=== PATIENT | male | born 1960 | race Caucasian/White ===

== ENCOUNTER 2016-08-17 14:39 | Inpatient (IN) | payer OTHER ==
--- NOTE | ~2016-08-17 | DS ---
Discharge Summary [facility] [address] [place]. [address] NAME: PADMAJA DALE : 60 STATUS : DIS Etienne PAT#: [id number] AGE: 56 ADM/REG DATE : 08/17/16 MR#: [id number] REPORT SERV DATE: 08/22/16 DICTATED BY: GELACIO PATEL DATE: 08/22/16 REPORT STATUS : Draft TRANSCRIBED BY: MODL DATE: 08/22/16 ADMISSION DATE: 08/17/2016 DISCHARGE DATE: 08/22/2016 DISCHARGE DIAGNOSES: 1. Right diabetic foot wound infection, status post I and D. 2. Hau-lkkhzrb-aosqwbyys diabetes type 2. 3. Hypertension. 4. History of cerebrovascular accident. CONSULTS: Dr. Atkinson of Podiatry. PROCEDURES: I and D of the right foot. HOSPITAL COURSE: This is a 56-year-old gentleman with history of diabetic foot wound infection in the past who presented with a right heel diabetic foot wound. For details, please refer to my own H and P. In summary, the patient was admitted for observation and for IV antibiotic therapy. It did not appear to be deeply infected and actually appeared quite superficial, initially, however on the second day of the hospital stay, the skin on the outer heel peeled off and he started draining and thus it was clearly evident that the patient had an infection that was connecting the entry wound on the bottom of his heel to the side of his heel. Podiatry was consulted who took the patient for I and D. The patient was held over the weekend for preliminary culture results. The patient's culture shows Staph species. The patient historically was treated with Bactrim for his previous foot infections, and he tolerated it well and thus it was felt appropriate for patient to be discharged home with p.o. Bactrim to finish a total of 14 day course. The patient will need to follow with Dr. Atkinson closely as well as wound care as he has done previously. Discharge medications other than the 14 day total course of Bactrim, the patient has no other medication changes. DISPOSITION: Home. FOLLOWUP: 1. Please follow up with PCP in the next one to two weeks. 2. Please follow up with Dr. Atkinson as instructed. 3. Please follow up with Wound Care as instructed. A total of 25 minutes spent in coordinating this patient's discharge today. [facility] [place] Gelacio Patel MD Discharge Summary [address] [address] NAME: PADMAJA DALE : 60 STATUS : DIS Etienne PAT#: [id number] AGE: 56 ADM/REG DATE : 08/17/16 MR#: [id number] REPORT SERV DATE: 08/22/16 DICTATED BY: GELACIO PATEL DATE: 08/22/16 REPORT STATUS : Draft TRANSCRIBED BY: MODL DATE: 08/22/16 / [id number] CC: MD Nguyen Hawkins M.D.
--- NOTE | ~2016-08-17 | HP ---
History And Physical [place] [id number] [facility] [place]. [address] NAME: PADMAJA DALE : 60 STATUS : ADM IN [facility]#: [id number] AGE: 56 ADM/REG DATE : 08/17/16 MR#: [id number] REPORT SERV DATE: 08/17/16 DICTATED BY: GELACIO PEÑALOZA DATE: 08/17/16 REPORT STATUS : Draft TRANSCRIBED BY: MODL DATE: 08/17/16 DATE OF ADMISSION: 08/17/2016 CHIEF COMPLAINT: A right foot nonhealing wound. HISTORY OF PRESENT ILLNESS: This is a 56-year-old gentleman with history of diabetes and hypertension, presenting with a nonhealing right foot wound. The patient reports that he first noticed it on his heel 08/03/2016 which is couple weeks ago. Since then, the patient tried putting on some Neosporin and he also tried keeping weight off his right foot as much as he can. Unfortunately, the wound did not heal up, and about a week ago, it actually became red and swollen. The patient was seen by his PCP who gave him a p.o. Bactrim which effectively got rid of the redness and warmth. Unfortunately, however, the patient's right foot wound on his heel persisted and thus he decided to come to the ER for further evaluation and care. In the ER, the patient was found to be afebrile and hemodynamically stable. Initial lab evaluation was all very benign for CBC and BMP. His white blood cell count was 11.0. Lactate was negative and x-ray of the right foot was nonacute. Internal Medicine consultation was requested for admission of the patient for further evaluation and care. In reviewing pertinent past medical history, the patient reports that he had suffered from a diabetic foot wound that was slow to heal several years ago. It took him about a year of wound care to heal. The patient is extremity fixated on getting wound care as well as antibiotic therapy to heal the wound. On my exam, the patient appears to have a very superficial and trivial puncture wound that is not infected. There is no redness and there is no induration. There is no tenderness. It does have a slight drainage which appears to be actually a topical antibiotic that was put on earlier by the ER staff. REVIEW OF SYSTEMS: The patient denies any fevers or chills. Also, 14-point review of systems reviewed and negative other than mentioned above. MEDICATIONS: 1. Aspirin 325 mg p.o. q.a.m. 2. Plavix 75 mg p.o. q.a.m. 3. Zestoretic one tab p.o. q.a.m. 4. Metformin 1000 mg p.o. b.i.d. 5. Pravachol 80 mg p.o. at bedtime. 6. Bactrim one tab p.o. b.i.d. x5 days, which the therapy was completed as of yesterday. ALLERGIES: NKDA. PAST MEDICAL HISTORY: 1. Omz-dpugugt-xmyplhrck diabetes type 2. 2. Hypertension. 3. History of CVA back in 2011 with no residual deficits. History And Physical [address] [address] NAME: PADMAJA DALE : 60 STATUS : ADM IN [facility]#: [id number] AGE: 56 ADM/REG DATE : 08/17/16 MR#: [id number] REPORT SERV DATE: 08/17/16 DICTATED BY: GELACIO PEÑALOZA DATE: 08/17/16 REPORT STATUS : Draft TRANSCRIBED BY: YUE DATE: 08/17/16 PAST SURGICAL HISTORY: Some kind of kidney surgery at age 22. FAMILY HISTORY: Negative. SOCIAL HISTORY: The patient does not smoke, drink alcohol, or use any illicit drugs. The patient is at home with his . 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 The patient reports that the more he has to take a break the less income he will get. The patient is concerned about his wounds turning into a nonhealing ulcer because his income is dependent on the amount of work he can perform. PHYSICAL EXAMINATION: VITAL SIGNS: Temperature 97.3, blood pressure 116/69, pulse 78, respiratory rate is 16, and saturating 98% on room air. NEUROLOGIC: The patient is alert and oriented x3 with no focal neurologic deficits. GENERAL: The patient is awake, does not appear to be in acute distress and he is cooperative. NECK: No JVD. No lymphadenopathy. Normal thyroid. CHEST: No midline sternotomy scar and no tenderness to palpation. LUNGS: Clear to auscultation bilaterally with normal respiratory effort on room air. CARDIOVASCULAR: Regular rate and rhythm with no murmurs, rubs, or gallops and PMI is nondisplaced. ABDOMEN: Soft, nontender, with active bowel sounds and no organomegaly. EXTREMITIES: No edema. Normal distal pulses. No calf tenderness. SKIN: Clean, dry, warm, and intact. LABORATORY DATA: Sodium is 134, potassium 4.7, chloride 99, BUN 23, creatinine 1.01, glucose 136, calcium 9.1. White blood cell count is 11.0, hemoglobin 12.7, platelets 384. Lactate is 0.9. Right foot x-ray was nonacute. ASSESSMENT: This is a 56-year-old gentleman with history of diabetes, hypertension, and diabetic nonhealing foot ulcer, presenting with a diabetic foot wound on his right heel. 1. Right heel diabetic foot wound, which appears to be a superficial puncture wound without any active infection at this point in time, although the patient is quite fixated on getting wound care as well as antibiotic therapy for infection based on his previous experience. 2. Non-insulin dependent diabetes type 2. 3. Hypertension. 4. History of cerebrovascular accident. PLAN: My plan is to admit the patient for observation under med/surg telemetry. The patient will be given gentle IV fluid resuscitation. The patient was already started on IV vancomycin which I will tentatively continue, but I repeatedly explained to the patient that he did not seem to have an active ongoing infection and really all he needs is a careful History And Physical [address] [address] NAME: PADMAJA DALE : 60 STATUS : ADM IN [facility]#: [id number] AGE: 56 ADM/REG DATE : 08/17/16 MR#: [id number] REPORT SERV DATE: 08/17/16 DICTATED BY: GELACIO PEÑALOZA DATE: 08/17/16 REPORT STATUS : Draft TRANSCRIBED BY: MODL DATE: 08/17/16 wound care at home. The patient probably does not even need a professional wound care at this point in time. I will go ahead and check ESR, CRP, as well as procalcitonin level just to cover the basis of potential infection. My feeling is that the patient would be just fine and be able to be discharged to home tomorrow with instructions on wound care at home. Standard DVT prophylaxis. The patient is full code at this time. [facility] [place] Gelacio Peñaloza MD / [id number] CC: MD Dr. Adalberto Hawkins
[2016-08-17 13:23] LABS: BASOPHILS 0.1 %; BASOPHILS ABSOLUTE 0.01 10/3/uL (0.0-0.16); EOSINOPHILS 2.3 %; EOSINOPHILS ABSOLUTE 0.25 10/3/uL (0.0-0.53); HEMATOCRIT 39.4 % (40.0-51.0); HEMOGLOBIN 12.7 g/dL (13.6-17.8); IMMATURE GRANULOCYTES 0.5 %; IMMATURE GRANULOCYTES ABSOLUTE 0.06 10/3/uL (0.0-0.11); LYMPHOCYTES 23.6 %; LYMPHOCYTES ABSOLUTE 2.61 10/3/uL (0.67-4.30); MEAN CORPUS HGB CONC 32.2 g/dL (32.0-36.0); MEAN CORPUSCULAR VOLUME 77.6 fL (80-100); MEAN PLATELET VOLUME 9.6 fL (9.2-13.0); MONOCYTES 5.9 %; MONOCYTES ABSOLUTE 0.65 10/3/uL (0.21-1.20); NEUTROPHILS 67.6 %; NEUTROPHILS ABSOLUTE 7.46 10/3/uL (2.02-8.40); PLATELET COUNT 384 10/3/uL (150-400); RBC DISTRIBUTION WIDTH 14.2 % (12.0-16.0); RED CELL COUNT 5.08 10/6/uL (4.7-6.1)
[2016-08-17 13:24] LABS: ER CBC TAT 0 Hrs 06 MinsN; MANUAL DIFF NO %
[2016-08-17 13:35] LABS: BUN (BLOOD UREA NITROGEN) 23 MG/DL (6-23); CALCIUM, SERUM 9.1 MG/DL (8.5-10.4); CHLORIDE, SERUM 99 MMOL/L (96-112); CO2 (CARBON DIOXIDE) 26 MMOL/L (24-34); CREATININE 1.01 MG/DL (0.70-1.30); GFR AFRICAN AMERICAN 96 ML/MIN (>=60); GFR NON AFRICAN AMERICAN 83 ML/MIN (>=60); GLUCOSE, SERUM 136 MG/DL (60-99); POTASSIUM, SERUM 4.7 MMOL/L (3.5-5.3); SODIUM, SERUM 134 MMOL/L (135-148)
[2016-08-17 13:39] LABS: LACTATE 0.9 MMOL/L (0.3-2.4)
[~2016-08-17 14:39] MED LIST: ASABAYER PO; ASAEC PO; BACTRIM DS1 TAB PO; GLUCOPHAGE1000 MG PO; GLUCPH PO; MICRONASE1.25 MG PO; MICRONASE5 MG PO; PLAVIX PO; PRAVACHOL80 MG PO; ZESTORETIC1 TA1 PO; ZESTORETIC1 TAB PO
[2016-08-17 17:48] LABS: PROCALCITONIN 0.09 ng/mL (<0.5)
[2016-08-18 05:51] LABS: BASOPHILS 0.2 %; BASOPHILS ABSOLUTE 0.02 10/3/uL (0.0-0.16); EOSINOPHILS ABSOLUTE 0.28 10/3/uL (0.0-0.53); HEMATOCRIT 36.6 % (40.0-51.0); HEMOGLOBIN 11.9 g/dL (13.6-17.8); IMMATURE GRANULOCYTES 0.4 %; IMMATURE GRANULOCYTES ABSOLUTE 0.04 10/3/uL (0.0-0.11); LYMPHOCYTES 31.7 %; LYMPHOCYTES ABSOLUTE 2.92 10/3/uL (0.67-4.30); MEAN CORPUS HGB CONC 32.5 g/dL (32.0-36.0); MEAN CORPUSCULAR HEMOGLOB 25.3 pg (26.0-34.0); MEAN CORPUSCULAR VOLUME 77.7 fL (80-100); MEAN PLATELET VOLUME 9.5 fL (9.2-13.0); MONOCYTES 6.2 %; MONOCYTES ABSOLUTE 0.57 10/3/uL (0.21-1.20); NEUTROPHILS 58.5 %; NEUTROPHILS ABSOLUTE 5.38 10/3/uL (2.02-8.40); PLATELET COUNT 333 10/3/uL (150-400); RBC DISTRIBUTION WIDTH 14.3 % (12.0-16.0); RED CELL COUNT 4.71 10/6/uL (4.7-6.1); WHITE BLOOD CELLS 9.2 10/3/uL (4.5-10.5)
[2016-08-18 06:03] LABS: MANUAL DIFF NO %
[2016-08-18 06:05] LABS: BUN (BLOOD UREA NITROGEN) 20 MG/DL (6-23); CALCIUM, SERUM 8.4 MG/DL (8.5-10.4); CHLORIDE, SERUM 104 MMOL/L (96-112); CO2 (CARBON DIOXIDE) 27 MMOL/L (24-34); CREATININE 0.92 MG/DL (0.70-1.30); GFR AFRICAN AMERICAN 107 ML/MIN (>=60); GFR NON AFRICAN AMERICAN 93 ML/MIN (>=60); GLUCOSE, SERUM 128 MG/DL (60-99); POTASSIUM, SERUM 4.4 MMOL/L (3.5-5.3); SODIUM, SERUM 138 MMOL/L (135-148)
[2016-08-18 06:56] LABS: SED RATE 40 MM/HR (0-15)
[2016-08-20 13:14] LABS: BASOPHILS 0.1 %; BASOPHILS ABSOLUTE 0.01 10/3/uL (0.0-0.16); EOSINOPHILS 1.8 %; EOSINOPHILS ABSOLUTE 0.13 10/3/uL (0.0-0.53); HEMATOCRIT 38.5 % (40.0-51.0); HEMOGLOBIN 12.6 g/dL (13.6-17.8); IMMATURE GRANULOCYTES 0.4 %; IMMATURE GRANULOCYTES ABSOLUTE 0.03 10/3/uL (0.0-0.11); LYMPHOCYTES 32.5 %; LYMPHOCYTES ABSOLUTE 2.32 10/3/uL (0.67-4.30); MANUAL DIFF NO %; MEAN CORPUS HGB CONC 32.7 g/dL (32.0-36.0); MEAN CORPUSCULAR HEMOGLOB 25.5 pg (26.0-34.0); MEAN CORPUSCULAR VOLUME 77.9 fL (80-100); MEAN PLATELET VOLUME 9.1 fL (9.2-13.0); MONOCYTES 4.5 %; MONOCYTES ABSOLUTE 0.32 10/3/uL (0.21-1.20); NEUTROPHILS 60.7 %; NEUTROPHILS ABSOLUTE 4.32 10/3/uL (2.02-8.40); PLATELET COUNT 347 10/3/uL (150-400); RBC DISTRIBUTION WIDTH 14.1 % (12.0-16.0); RED CELL COUNT 4.94 10/6/uL (4.7-6.1); WHITE BLOOD CELLS 7.1 10/3/uL (4.5-10.5)
[2016-08-20 13:20] LABS: INTERNATIONAL NORMAL RATI 1.1 UNITS (-); PROTIME (NOT ORD) 13.7 SEC (12.0-14.5)
[2016-08-20 13:38] LABS: BUN (BLOOD UREA NITROGEN) 18 MG/DL (6-23); CALCIUM, SERUM 8.5 MG/DL (8.5-10.4); CHLORIDE, SERUM 104 MMOL/L (96-112); CO2 (CARBON DIOXIDE) 26 MMOL/L (24-34); CREATININE 0.71 MG/DL (0.70-1.30); GFR AFRICAN AMERICAN 122 ML/MIN (>=60); GFR NON AFRICAN AMERICAN 105 ML/MIN (>=60); GLUCOSE, SERUM 128 MG/DL (60-99); POTASSIUM, SERUM 4.2 MMOL/L (3.5-5.3); SODIUM, SERUM 139 MMOL/L (135-148)
[2016-08-21 07:40] LABS: BASOPHILS 0.1 %; BASOPHILS ABSOLUTE 0.01 10/3/uL (0.0-0.16); EOSINOPHILS 2.6 %; EOSINOPHILS ABSOLUTE 0.19 10/3/uL (0.0-0.53); HEMOGLOBIN 11.2 g/dL (13.6-17.8); IMMATURE GRANULOCYTES 0.6 %; IMMATURE GRANULOCYTES ABSOLUTE 0.04 10/3/uL (0.0-0.11); LYMPHOCYTES 35.3 %; LYMPHOCYTES ABSOLUTE 2.56 10/3/uL (0.67-4.30); MEAN CORPUSCULAR HEMOGLOB 25.7 pg (26.0-34.0); MEAN CORPUSCULAR VOLUME 77.8 fL (80-100); MONOCYTES 5.2 %; MONOCYTES ABSOLUTE 0.38 10/3/uL (0.21-1.20); NEUTROPHILS 56.2 %; NEUTROPHILS ABSOLUTE 4.07 10/3/uL (2.02-8.40); PLATELET COUNT 308 10/3/uL (150-400); RBC DISTRIBUTION WIDTH 14.2 % (12.0-16.0); RED CELL COUNT 4.36 10/6/uL (4.7-6.1); WHITE BLOOD CELLS 7.3 10/3/uL (4.5-10.5)
[2016-08-21 07:41] LABS: HEMATOCRIT 33.9 % (40.0-51.0); MANUAL DIFF NO %
[2016-08-21 07:43] LABS: BUN (BLOOD UREA NITROGEN) 16 MG/DL (6-23); CALCIUM, SERUM 8.6 MG/DL (8.5-10.4); CHLORIDE, SERUM 105 MMOL/L (96-112); CO2 (CARBON DIOXIDE) 25 MMOL/L (24-34); CREATININE 0.79 MG/DL (0.70-1.30); GFR AFRICAN AMERICAN 116 ML/MIN (>=60); GFR NON AFRICAN AMERICAN 100 ML/MIN (>=60); GLUCOSE, SERUM 117 MG/DL (60-99); SODIUM, SERUM 141 MMOL/L (135-148)
[2016-08-22] MEDS ORDERED: CELEBREX2 PO (11:33)
== END 2016-08-22 16:04 | disposition home or self-care (01) | DRG 623 ==
LOC: ER 14:39 → 4SO 15:16
PROVIDERS: Internal Medicine; Nurse Practitioner; Podiatrist
PROC: 0HBMXZZ Excision of Right Foot Skin, External Approach (ICD-10-PCS; principal; 2016-08-20 08:45)
DX: E11.621 Type 2 diabetes mellitus with foot ulcer (principal); L97.412 Non-pressure chronic ulcer of right heel and midfoot with fat layer exposed; L97.512 Non-pressure chronic ulcer of other part of right foot with fat layer exposed; I10 Essential (primary) hypertension; E11.9 Type 2 diabetes mellitus without complications; B95.8 Unspecified staphylococcus as the cause of diseases classified elsewhere; Z86.73 Personal history of transient ischemic attack (TIA), and cerebral infarction without residual deficits; Z79.82 Long term (current) use of aspirin; Z79.02 Long term (current) use of antithrombotics/antiplatelets; Z79.84 Long term (current) use of oral hypoglycemic drugs
CPT/HCPCS: 73630-RT; 80048; 82962; 83036; 83605; 84145; 85025; 85610; 85652; 86140; 87015; 87070; 87075; 87077; 87102; 87116; 87186; 87205; 96374; 99284; A9270-GY; J2250; J2405; J2543; J3010; J3370